=== PATIENT | female | born 1975 | race Hispanic/Latino ===

== ENCOUNTER 2019-05-01 14:14 | Emergency (ER) | payer OTHER, SELFPAY ==
--- NOTE | 2019-05-01 14:27 | PC.NURSE ---
in br to obtain ua spec.
[2019-05-01 14:30] VITALS: BP 117/56; PULSE 62; RESP 16; TEMP 36.9; O2SAT 99
--- NOTE | 2019-05-01 14:55 | ED.FEMALEGU ---
HPI - Female Genitourinary General Chief complaint: Urogenital-Female Stated complaint: UTI Time Seen by Provider: 05/01/19 14:55 Source: patient and RN notes reviewed Mode of arrival: ambulatory Limitations: no limitations History of Present Illness HPI Narrative: 44 year old female who presents to [facility] accompanied by daughter with complaints of 3-4 day history of suprabubic pain, urinary frequency, burning with urination, and urine having strong odor. Patient states no known fevers, chills, nausea or vomiting or acute abdominal or CVA tenderness. Patient states that she has had no vaginal discharge, itching, states she saw her CHRO approximately 2 months ago for exam. Patient states that she has history of past UTIs with similar symptoms. MD elicited complaint: dysuria and other (suprapubic tenderness) Pertinent past history: recurrent UTIs Onset (ago): day(s) (3-4) Location of symptoms: perineum and suprapubic Severity: moderate Female Urogenital Radiation: Non-Radiating Severity scale (1-10): 8 Quality of pain: burning and aching Consistency: progressively worsening Vaginal discharge: none Vaginal bleeding: none Urinary symptoms: Dysuria, Urgency, Frequency and Foul Smelling Urine Exacerbating factors: urination Relieving factors: none Associated symptoms: other (suprapubic discomfort) Treatment prior to arrival: none Sexual activity: Yes Patient : No Date of Last Menstrual Period: 04/08/19 Related Data Allergies Allergy/AdvReac Type Severity Reaction Status Date / Time No Known Allergies Allergy Verified 05/01/18 10:12 Review of Systems Review of Systems: Narrative: CONSTITUTIONAL: Denies fever, chills, or sweats. EYES: Denies visual changes, redness, or discharge. ENT: Denies rhinorrhea, congestion, sore throat, or otalgia. CARDIOVASCULAR: Denies chest pain, palpitations, or edema. RESPIRATORY: Denies cough or dyspnea. GASTROINTESTINALreports suprapubic abdominal pain, no nausea, vomiting, or diarrhea. GENITOURINARY: positive dysuria no hematuria. SKIN: Denies rash or itching. MUSCULOSKELETAL: Denies back pain, joint pain, or myalgia. NEUROLOGIC: Denies headache, numbness, or weakness. PSYCHIATRIC: Denies anxiety or depression. All systems reviewed & are unremarkable except as noted in HPI and below PMFSH Past Medical History Medical History (Updated 05/03/19 @ 11:53 by Laurel Laughlin NP) UTI (urinary tract infection) Surgical History Surgical History (Updated 05/03/19 @ 10:31 by Laurel Laughlin NP) Previous section Social History Social History (Updated 05/03/19 @ 10:32 by Laurel Laughlin NP) Smoking status: Never smoker Living arrangements: with family Gender identity (if verbalized by the patient): Female Comments At time of signature, agree with nursing past medical, surgical, social and family history. There is no relevant family history pertinent to the presenting complaint Exam Narrative: Exam Narrative: GENERAL: Well-appearing, well-nourished, and in no acute distress. HEAD: Normocephalic, atraumatic. EYES: PERRLA and EOMI. ENT: Nares clear, no rhinorrhea or epistaxis. Mucous membranes moist. NECK: Supple. CHEST: Clear to auscultation. No respiratory distress.SAO2 99% on room air HEART: Regular rate and rhythm. No murmur heard. Normal peripheral pulses. ABDOMEN: Soft,tender suprapubic area of abdomen, nondistended, normal active bowel sounds, denies any nausea or vomiting or any vaginal discharge or itching.no CVA tenderness. EXTREMITIES: Normal range of motion. No edema. SKIN: Warm, dry, no rash. NEURO: No focal deficits. Alert and oriented x3. Course Vital Signs Vital signs: Vital Signs Temperature 36.9 C 05/01/19 14:30 Pulse Rate 62 05/01/19 14:30 Respiratory Rate 16 05/01/19 14:30 Blood Pressure 117/56 L 05/01/19 14:30 Pulse Oximetry 99 05/01/19 14:30 Temperature 36.9 C 05/01/19 14:30 Pulse Rate 62 05/01/19 14:
== END 2019-05-01 15:16 | disposition home or self-care (01) ==
PROVIDERS: Emergency Provider Registered Nurse
DX: N30.90 Cystitis, unspecified without hematuria (principal)
CPT/HCPCS: 81003; 99213; G0463

== ENCOUNTER 2021-06-27 12:46 | Emergency (ER) | payer OTHER, SELFPAY ==
[2021-06-27 13:08] VITALS: BP 97/47; PULSE 68; RESP 16; TEMP 36.6; O2SAT 99
--- NOTE | 2021-06-27 13:35 | ED.FEMALEGU ---
HPI - Female Genitourinary General Chief complaint: Urogenital-Female Stated complaint: uti Time Seen by Provider: 06/27/21 13:22 Source: patient and RN notes reviewed Mode of arrival: ambulatory Limitations: no limitations History of Present Illness HPI Narrative: Patient presents today with a 3-day history of malodorous urine, mild dysuria, lower abdominal cramping, voiding small amounts, and urinary frequency. She has increased her water intake without relief of symptoms. Denies hematuria, back pain, fever. She has tried no medication for symptoms prior to arrival. MD elicited complaint: UTI Related Data Home Medications Medication Instructions Recorded Confirmed ergocalciferol (vitamin D2) 1,250 mcg PO DAILY 06/27/21 06/27/21 progesterone micronized 200 mg PO DAILY 06/27/21 06/27/21 Allergies Allergy/AdvReac Type Severity Reaction Status Date / Time No Known Allergies Allergy Verified 06/27/21 12:59 Review of Systems Review of Systems: CONSTITUTIONAL: Denies body aches, fever, chills, or sweats. EYES: Denies visual changes, redness, or discharge. ENT: Denies rhinorrhea, congestion, sore throat, or otalgia. CARDIOVASCULAR: Denies chest pain, palpitations, or edema. RESPIRATORY: Denies cough or dyspnea. GASTROINTESTINAL: Denies abdominal pain, nausea, vomiting, or diarrhea. GENITOURINARY: Denies hematuria. + Malodorous urine, dysuria, frequency, lower abdominal cramping SKIN: Denies rash, itching, or wounds. MUSCULOSKELETAL: Denies back pain, joint pain, or myalgia. NEUROLOGIC: Denies headache, numbness, tingling, or weakness. PSYCH: Denies depression or anxiety. [facility] Past Medical History Medical History UTI (urinary tract infection) Surgical History Surgical History Previous section Social History Social History Smoking status: Never smoker Gender identity (if verbalized by the patient): Female Comments At time of signature, I have reviewed and agree with nursing past medical, surgical, social and family history unless otherwise noted. Please see nursing chart for further information. There is no relevant family history pertinent to the presenting complaint Exam Narrative: GENERAL: Well-appearing, well-nourished, and in no acute distress. HEAD: Normocephalic, atraumatic. EYES: EOMI. No redness or drainage. Conjunctivae normal. ENT: Mucous membranes pink and moist. NECK: Normal AROM. CHEST: No respiratory distress. Clear to auscultation. HEART: Regular rate and rhythm. No murmur appreciated. Normal peripheral pulses. ABDOMEN: Soft, nondistended, normal active bowel sounds. Mild suprapubic tenderness.-CVAT EXTREMITIES: Normal range of motion. No edema. SKIN: Warm, dry, no rash. Capillary refill normal. Normal skin turgor. NEURO: No focal deficits. Alert and oriented x3. Gait steady. PSYCH: Normal affect. No signs of depression or anxiety. Course Course Level of Care: Express Care Visit Vital Signs Vital signs: Vital Signs Temperature 97.9 F 06/27/21 13:08 Pulse Rate 68 06/27/21 13:08 Respiratory Rate 16 06/27/21 13:08 Blood Pressure 97/47 L 06/27/21 13:08 Pulse Oximetry 99 06/27/21 13:08 Temperature 97.9 F 06/27/21 13:08 Pulse Rate 68 06/27/21 13:08 Respiratory Rate 16 06/27/21 13:08 Blood Pressure 97/47 L 06/27/21 13:08 Pulse Oximetry 99 06/27/21 13:08 Reviewed MDM - Female Genitourinary Differential Diagnosis Differential diagnosis: Likely urinary tract infection, vaginitis, cystitis and other (Pyelonephritis, interstitial cystitis) Lab Data Attestation: I reviewed the patient's lab results. Labs: Urine Glucose Negative Reference Range: Negative Urine Bilirubin
== END 2021-06-27 13:41 | disposition home or self-care (01) ==
PROVIDERS: Emergency Provider Nurse Practitioner
DX: N30.00 Acute cystitis without hematuria (principal)
CPT/HCPCS: 81003; 87077; 87086; 87186; 99213; G0463

== ENCOUNTER 2023-06-27 11:45 | Emergency (ER) | payer OTHER, SELFPAY ==
[2023-06-27 12:15] VITALS: BP 97/49; PULSE 64; RESP 16; TEMP 36.4; O2SAT 100
--- NOTE | 2023-06-27 12:50 | ED.FEMALEGU ---
HPI - Female Genitourinary General Chief complaint: Urogenital-Female Stated complaint: UTI Time Seen by Provider: 06/27/23 12:29 Source: patient, RN notes reviewed and old records reviewed Mode of arrival: ambulatory Limitations: no limitations History of Present Illness HPI Narrative: Patient presents today complaining of a 3-4 day history of low back pain, lower abdominal cramping, malodorous urine, dysuria, frequency, and voiding small amounts. No [id number] treatment prior to arrival. Review of patient's chart shows previous [facility] visit with similar symptoms and almost normal urinalysis with subsequent positive urine culture. Related Data Home Medications Medication Instructions Recorded Confirmed ergocalciferol (vitamin D2) 1,250 1,250 mcg PO DAILY 06/27/21 06/27/21 mcg (50,000 unit) capsule progesterone micronized 200 mg 200 mg PO DAILY 06/27/21 06/27/21 capsule semaglutide 2 mg/dose (8 mg/3 mL) 2 mg subcut WEEKLY 06/27/23 06/27/23 subcutaneous pen injector (Ozempic) Allergies Allergy/AdvReac Type Severity Reaction Status Date / Time No Known Allergies Allergy Verified 06/27/23 12:22 Review of Systems Review of Systems: CONSTITUTIONAL: Denies body aches, fever, chills, or sweats. EYES: Denies visual changes, redness, or discharge. ENT: Denies rhinorrhea, congestion, sore throat, or otalgia. CARDIOVASCULAR: Denies chest pain, palpitations, or edema. RESPIRATORY: Denies cough or dyspnea. GASTROINTESTINAL: Denies nausea, vomiting, or diarrhea. GENITOURINARY: + dysuria, frequency, malodorous urine, lower abdominal cramping. SKIN: Denies rash, itching, or wounds. MUSCULOSKELETAL: Denies joint pain, or myalgia.+ low back pain NEUROLOGIC: Denies headache, numbness, tingling, or weakness. PSYCH: Denies depression or anxiety. [facility] Past Medical History Medical History UTI (urinary tract infection) Surgical History Surgical History Previous section Social History Social History Smoking status: Never smoker Living arrangements: with family Gender identity (if verbalized by the patient): Female Comments At time of signature, I have reviewed and agree with nursing past medical, surgical, social and family history unless otherwise noted. Please see nursing chart for further information. There is no relevant family history pertinent to the presenting complaint Exam Narrative: GENERAL: Well-appearing, well-nourished, and in no acute distress. HEAD: Normocephalic, atraumatic. EYES: EOMI. No redness or drainage. Conjunctivae normal. ENT: Mucous membranes pink and moist. NECK: Normal AROM. CHEST: No respiratory distress. Clear to auscultation. HEART: Regular rate and rhythm. No murmur appreciated. Normal peripheral pulses. ABDOMEN: Soft, nondistended, normal active bowel sounds. + suprapubic tenderness. -CVAT EXTREMITIES: Normal range of motion. No edema. SKIN: Warm, dry, no rash. Capillary refill normal. Normal skin turgor. NEURO: No focal deficits. Alert and oriented x3. Gait steady. PSYCH: Normal affect. No signs of depression or anxiety. Course Course Level of Care: Express Care Visit Vital Signs Vital signs: Vital Signs Temperature 97.6 F 06/27/23 12:15 Pulse Rate 64 06/27/23 12:15 Respiratory Rate 16 06/27/23 12:15 Blood Pressure 97/49 L 06/27/23 12:15 Pulse Oximetry 100 06/27/23 12:15 Oxygen Delivery Room Air 06/27/23 12:15 Temperature 97.6 F 06/27/23 12:15 Pulse Rate 64 06/27/23 12:15 Respiratory Rate 16 06/27/23 12:15 Blood Pressure 97/49 L 06/27/23 12:15 Pulse Oximetry 100 06/27/23 12:15 Oxygen Delivery Room Air 06/27/23 12:15 Reviewed MDM - Female Genitourinary MDM Narrative Medical decision making narrati
== END 2023-06-27 13:01 | disposition home or self-care (01) ==
PROVIDERS: Emergency Provider Nurse Practitioner
DX: R30.0 Dysuria (principal)
CPT/HCPCS: 81003; 87077; 87086; 87088; 87186; 99213; G0463

== ENCOUNTER 2024-02-22 08:49 | Emergency (ER) | payer OTHER, SELFPAY ==
[2024-02-22 09:04] VITALS: BP 100/34; PULSE 58; RESP 18; TEMP 36.2; O2SAT 100
--- NOTE | 2024-02-22 09:07 | ED.FEMALEGU ---
HPI - Female Genitourinary General Chief complaint: Urogenital-Female Stated complaint: urinary issue Time Seen by Provider: 02/22/24 09:26 Source: patient, RN notes reviewed and old records reviewed Mode of arrival: ambulatory Limitations: no limitations History of Present Illness HPI Narrative: Patient presents with complaints of urinary frequency and burning that have been present for 1 week. She reports that last week she started taking azo for symptoms and had good relief until a couple of days ago. She does report some lower abdominal pain, dysuria. Denies any wilian blood in the urine. Denies back pain. Denies fever, chills, sweats. Denies any injury or trauma. Voices no other concerns or complaints today. Related Data Home Medications Medication Instructions Recorded Confirmed ergocalciferol (vitamin D2) 1,250 1,250 mcg PO DAILY 06/27/21 02/22/24 mcg (50,000 unit) capsule progesterone micronized 200 mg 200 mg PO DAILY 06/27/21 02/22/24 capsule semaglutide 2 mg/dose (8 mg/3 mL) 2 mg subcut WEEKLY 06/27/23 02/22/24 subcutaneous pen injector (Ozempic) Allergies Allergy/AdvReac Type Severity Reaction Status Date / Time No Known Allergies Allergy Verified 02/22/24 08:53 Review of Systems Review of Systems: All systems reviewed & are unremarkable except as noted in HPI and below Constitutional: Constitutional: Reports no additional constitutional complaints ENT: Reports system reviewed and no additional complaints, except as documented Cardiovascular: Cardiovascular: Reports no additional cardiovascular complaints Respiratory: Respiratory: Reports no additional respiratory complaints Gastrointestinal: Gastrointestinal: Reports no additional gastrointestinal complaints Genitourinary: Genitourinary: Reports no additional female genitourinary complaints, Reports as per HPI, Reports dysuria and Reports urinary urgency [facility] Past Medical History Medical History UTI (urinary tract infection) Surgical History Surgical History Previous section Social History Social History Smoking status: Never smoker Living arrangements: with family Gender identity (if verbalized by the patient): Female Comments At the time of my signature, I reviewed and agree with the nursing past medical, surgical, social, and family history. There is no relevant family history pertinent to the patient complaint. Exam Const: General: cooperative, no acute distress, alert and awake Orientation/consciousness: oriented to person, oriented to place and oriented to time HENMT: Head: normal to inspection Resp: Effort & Inspection: normal respiratory effort and able to speak in complete sentences Auscultation: clear to auscultation bilaterally, no crackles, no rales, no rhonchi and no wheezes Cardio: Palpation: normal PMI Rate: regular rate Rhythm: regular rhythm Heart sounds: S1 normal heart sound present and S2 normal heart sound present : General: Yes bladder normal to palpation and Yes no CVA tenderness Neuro: General: oriented to person, oriented to place and oriented to time Cranial nerves: Yes CN's II-XII intact bilaterally Psych: Appearance: grossly normal Thought process: Normal thought process present Insight: Good insight present (Psych) Judgement: Good judgement present (Psych) Course Course Level of Care: Express Care Visit Vital Signs Vital signs: Vital Signs Temperature 97.1 F L 02/22/24 09:04 Pulse Rate 58 L 02/22/24 09:04 Respiratory Rate 18 02/22/24 09:04 Blood Pressure 100/34 L 02/22/24 09:04 Pulse Oximetry 100 02/22/24 09:04 Oxygen Delivery Room Air 02/22/24 09:04 Temperature 97.1 F L 02/22/24 09:04 Pulse Rate 58 L 02/22/24 09:04 Respiratory Rate 18 02/22/24 09:04 Blood Pressure 100/34 L 02/22/24 09:04 Pulse Oximetry 100 02/22/24 09:04 Oxygen Delivery Room Air 02/22/24 09:04 Reviewed MDM - Female Genitourinary MDM Narrative Medical decision making narrative: History, exam, UA consistent with UTI. Start Macrobid. Culture pending. Follow with primary care provider. Patient nontoxic appearing, stable for discharge home on p.o. antibiotics. Discharge instructions reviewed with patient, as well as provided in writing per nursing staff. The instructions also include specific and strict return/GO TO THE ER as well as f/u information. All questions have been answered, and the patient deny any further questions with discharge and discharge plan. Some parts of this dictation were generated by voice recognition software and may contain typographical and/or grammatical inaccuracies. Differential Diagnosis Differential diagnosis: Likely urinary tract infection and other (Cystitis, dysuria) Medical Records Attestation: I reviewed the patient's medical records. Lab Data Attestation: I reviewed the patient's lab results. Discharge Plan Discharge Clinical Impression: Urinary tract infection Qualifiers: Urinary tract infection type: site unspecified Hematuria presence: without hematuria Qualified Code(s): N39.0 - Urinary tract infection, site not specified Patient Disposition: Home, Self-Care Condition: Stable Instructions: Antibiotic Form, Urinary Tract Infection in Women (ED) Additional Instructions: Take all medications as prescribed, follow with primary care provider. Emergency department for new or worse symptoms Patient Language: Sinhala Prescriptions: New nitrofurantoin monohyd/m-cryst [Macrobid] 100 mg capsule 100 mg PO Q12H 5 Days Qty: 10 0RF Rx Instructions: must administer with a meal/food No Action progesterone micronized 200 mg capsule 200 mg PO DAILY ergocalciferol (vitamin D2) 1,250 mcg (50,000 unit) capsule 1,250 mcg PO DAILY Ozempic 2 mg/dose (8 mg/3 mL) pen injector 2 mg SUBCUT WEEKLY Follow-up/Referrals: PHYSICIAN,RELAY ASSEMBLER [Primary Care Provider] - Stand Alone Forms: Work/School Release IP Time of Disposition: 09:36
[2024-02-22 09:16] LABS: EDUAAPPEAR Cloudy; EDUABILI Negative (Negative); EDUABLOOD Negative (Negative); EDUACOLOR1 Dark; EDUAGLUCOSE Negative (Negative); EDUAKETONE Negative (Negative); EDUALEUKO 2+ (Negative); EDUANITRATE Positive (Negative); EDUAPH 6.5; EDUAPROTEIN Negative (Negative); EDUAUROBILI 0.2
[2024-02-22 09:53] VITALS: BP 100/70
== END 2024-02-22 09:53 | disposition home or self-care (01) ==
PROVIDERS: Emergency Provider Nurse Practitioner Family
DX: N39.0 Urinary tract infection, site not specified (principal); Z79.899 Other long term (current) drug therapy
CPT/HCPCS: 81003; 87086; 87186; 99213; G0463

== ENCOUNTER 2025-01-29 12:33 | Emergency (ER) | payer OTHER, SELFPAY ==
[2025-01-29 12:38] VITALS: BP 108/57; PULSE 71; RESP 16; TEMP 36.4; O2SAT 99
[2025-01-29 13:12] LABS: EDCOVIDSCREEN Negative (Negative); EDINFLUASCREEN Positive (Negative); EDINFLUBSCREEN Negative (Negative)
--- NOTE | 2025-01-29 13:32 | ED.URI ---
HPI - URI/Sore Throat General Chief Complaint: Upper Respiratory Infection Stated Complaint: Flu Like Time Seen by Provider: 01/29/25 13:25 Source: patient and RN notes reviewed Mode of arrival: ambulatory Limitations: no limitations History of Present Illness HPI Narrative: 49-year-old female patient presents today complaining of a 2 day history of headache, body aches, fatigue, sneezing, and slight cough. She has tried ibuprofen with some improvement and currently rates her headache moderate. Related Data Allergies Allergy/AdvReac Type Severity Reaction Status Date / Time No Known Allergies Allergy Verified 01/29/25 12:44 [facility] Past Medical History Medical History UTI (urinary tract infection) Surgical History Surgical History Previous section Social History Social History Smoking status: Never smoker Living arrangements: with family Gender identity (if verbalized by the patient): Female Comments At time of signature, I have reviewed and agree with nursing past medical, surgical, social and family history unless otherwise noted. Please see nursing chart for further information. There is no relevant family history pertinent to the presenting complaint Exam Narrative: GENERAL: Mildly ill-appearing, well-nourished, and in no acute distress. HEAD: Normocephalic, atraumatic. EYES: EOMI. No redness or drainage. Conjunctivae normal. ENT: Mucous membranes pink and moist. Nares clear. No rhinorrhea. TMs normal bilaterally. Throat normal. Uvula midline. NECK: Normal AROM. Supple. No lymphadenopathy. CHEST: No respiratory distress. Clear to auscultation. HEART: Regular rate and rhythm. No murmur appreciated. EXTREMITIES: Normal range of motion. No edema. SKIN: Warm, dry, no rash. Capillary refill normal. Normal skin turgor. NEURO: No focal deficits. Alert and oriented x3. Gait steady. PSYCH: Normal affect. No signs of depression or anxiety. Course Course Level of Care: Express Care Visit Vital Signs Vital signs: Vital Signs Temperature 97.6 F 01/29/25 12:38 Pulse Rate 71 01/29/25 12:38 Respiratory Rate 16 01/29/25 12:38 Blood Pressure 108/57 L 01/29/25 12:38 Pulse Oximetry 99 01/29/25 12:38 Oxygen Delivery Room Air 01/29/25 12:38 Temperature 97.6 F 01/29/25 12:38 Pulse Rate 71 01/29/25 12:38 Respiratory Rate 16 01/29/25 12:38 Blood Pressure 108/57 L 01/29/25 12:38 Pulse Oximetry 99 01/29/25 12:38 Oxygen Delivery Room Air 01/29/25 12:38 Reviewed MDM - URI/Sore Throat MDM Narrative Medical decision making narrative: 49-year-old female patient presents today with a 2 day history of headache, body aches, fatigue, and sneezing. OTC ibuprofen with some improvement. Upon exam, patient is mildly ill-appearing and has an otherwise normal exam. COVID-19 test negative. Influenza a positive. She is within the window of Tamiflu and would like to try it. Also recommend continuing the ibuprofen for discomfort if needed. Vital signs stable. Patient agrees with plan. Anticipatory guidance given. Differential Diagnosis Differential diagnosis: Likely upper respiratory infection, viral infection, influenza and other (COVID-19) Lab Data Attestation: I reviewed the patient's lab results. Labs: Lab Results 01/29/25 Range/Units 12:40 POC Influenza A Ag Positive (Negative) POC Influenza B Ag Negative (Negative) POC SARS CoV-2 Ag Negative (Negative) Critical Care Time Critical Care Time Critical Care Time: No Discharge Plan Discharge Clinical Impression: Influenza A Patient Disposition: Home Condition: Stable Instructions: Influenza (DC) Additional Instructions: You have tested positive for influenza A today. Please take the Tamiflu as directed. Continue [id number] medications such as Tylenol or ibuprofen if needed for fever or pain. Follow-up with your PCP in 5 days if symptoms are not improving. Go to the ER immediately if symptoms worsen such as chest pain, shortness of breath. Patient Language: Belarusian Prescriptions: New oseltamivir [Tamiflu] 75 mg capsule 75 mg PO Q12H 5 Days Qty: 10 0RF Follow-up/Referrals: PHYSICIAN,ASH HANDLER [Primary Care Provider, Internal Medicine] Stand Alone Forms: Work/School Release IP Time of Disposition: 13:36
== END 2025-01-29 13:54 | disposition home or self-care (01) ==
PROVIDERS: Emergency Provider Nurse Practitioner
DX: J10.1 Influenza due to other identified influenza virus with other respiratory manifestations (principal); Z20.822 Contact with and (suspected) exposure to COVID-19
CPT/HCPCS: 87426; 87804; 99213; G0463